=== PATIENT | male | born 1990 | race African-American/Black ===

== ENCOUNTER 2019-07-05 19:47 | Emergency (ER) | payer BC ==
[~2019-07-05] VITALS: Ht 190.5 cm; Wt 93.0 kg
[2019-07-05] MEDS ORDERED: PREDNISONE 20MG TABLET PO STA (20:11)
[2019-07-05] MEDS ORDERED: IPRATROPIUM/ALBUTEROL 0.5-3(2.5)MG/3ML NEB HHN ONE ×2 (20:15→22:15)
[2019-07-05] MEDS ORDERED: LEVOFLOXACIN 500MG TABLET PO ONE (20:15)
[2019-07-05] MEDS ORDERED: IBUPROFEN 800MG TABLET PO ONE (22:15)
[2019-07-06 00:36] VITALS: BP 145/87
== END 2019-07-06 00:38 | disposition home or self-care (01) ==
LOC: ER 20:08
DX: J40 Bronchitis, not specified as acute or chronic (principal)
CPT/HCPCS: 71045; 94640; 99284; J7512; J7620; Z7610